=== PATIENT | male | born 1965 | race Caucasian/White ===

== ENCOUNTER 2016-05-13 15:06 | Emergency (ER) | payer OTHER, BC ==
[~2016-05-13] VITALS: Wt 129.3 kg
[~2016-05-13 15:06] MED LIST: ACYCLOVIR800 MG PO; ALTOCOR20 MG PO; ATARAX25 MG PO; BLOOD PRESSURE PILL; CHOLESTEROL PILL; CORDROL20 MG PO; HYDROCODONE BIT1 T11 PO; LISINOPRIL10 MG PO; MEDROL DOSEPAK4 MG PO; METAXALONE800 MG PO; NORFLEX100 MG PO; PREDNICOT20 MG PO; ROBAXIN750 MG PO; VICODIN ES 7501 TAB PO
[2016-05-13 15:12] VITALS: BP 156/82
[2016-05-13] MEDS ORDERED: METFORMIN750 MG PO (15:13)
[2016-05-13] MEDS ORDERED: NAPROSYN500 MG PO (15:21)
== END 2016-05-13 16:13 | disposition home or self-care (01) ==
LOC: ED 15:06
DX: S40.011A Contusion of right shoulder, initial encounter (principal); R03.0 Elevated blood-pressure reading, without diagnosis of hypertension; Z90.49 Acquired absence of other specified parts of digestive tract; W01.0XXA Fall on same level from slipping, tripping and stumbling without subsequent striking against object, initial encounter; Y93.89 Activity, other specified; Y92.69 Other specified industrial and construction area as the place of occurrence of the external cause; Y99.0 Civilian activity done for income or pay

== ENCOUNTER 2018-02-24 10:11 | Inpatient (IN) | payer BC ==
[~2018-02-24] VITALS: Ht 185.4 cm; Wt 137.6 kg
[2018-02-24] VITALS (10 sets, daily range): BP systolic 134–166; BP diastolic 78–103
--- NOTE | ~2018-02-24 | EKG ---
[place], [place] ELECTROCARDIOGRAM REPORT NAME: JUAN MADSEN UNIT #: [id number] ROOM: 504 DOCTOR: COLBY DRAFT REPORT BIRTHDATE: [birth year] [facility] Test Date: 2018-02-24 Test Time: 13:12:10 Pat Name: JUAN MADSEN Department: Room: 504 Gender: M [place]: 0012 : 1965 Requested By: DAVID ROBERTSON Order Number: [id number] Reading MD: Devante Valdez MD Measurements Intervals [place] Rate: 90 P: 37 DE: 163 QRS: -25 QRSD: 101 T: 10 QT: 364 QTc: 446 Interpretive Statements Sinus rhythm Borderline left axis deviation ST elev, probable normal early repol pattern Electronically Signed On 02-25-2018 9:26:00 PST by Devante Valdez MD CM:[email or web address]:ELECTROCARDIOGRAM REPORT [id number] DAVID BOWMAN DRAFT REPORT DAVID ROBERTSON M.D.
--- NOTE | ~2018-02-24 | EKG ---
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
--- NOTE | ~2018-02-24 | EKG ---
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
[~2018-02-24 10:11] MED LIST changes: +LISINOPRIL10 M1 PO; -LISINOPRIL10 MG PO; +METFORMIN750 MG PO; +NAPROSYN500 MG PO
[2018-02-24 10:24] LABS: BASO # 0.1 10*3/uL (0.0-0.1); BASO % 1.7 % (0.0-1.0); EOS # 0.6 10*3/uL (0.0-0.4); EOS % 7.1 % (1.0-4.0); HEMOGLOBIN 14.9 g/dl (14.0-18.0); LYMPH % 36.5 % (27.0-41.0); MEAN CELL VOLUME 90.7 fl (80.0-94.0); MEAN CORPUSCULAR HGB 31.4 pg (27.0-31.0); MEAN CORPUSCULAR HGB CONC 34.7 g/dl (33.0-37.0); MEAN PLATELET VOLUME 9.5 fl (9.6-12.3); MONO # 0.7 10*3/uL (0.1-1.0); MONO % 8.9 % (3.0-9.0); NEUT # 3.7 10*3/uL (2.3-7.9); NEUT % 45.6 % (47.0-73.0); PLATELET COUNT AUTOMATED 282 10*3/uL (130-400); RED BLOOD COUNT 4.74 10*6/uL (4.50-5.90); RED CELL DISTRI WIDTH 12.1 % (0-14.5); WHITE BLOOD COUNT 8.2 10*3/uL (4.8-10.8)
[2018-02-24 10:33] LABS: ACT PARTIAL THROMBO TIME 22.7 SECONDS (20.8-31.5)
[2018-02-24 10:42] LABS: ALKALINE PHOSPHATASE 74 U/L (45-117); BUN 11 mg/dl (7-24); CHLORIDE 101 mmol/L (98-107); CREATININE 1.14 mg/dL (0.70-1.30); POTASSIUM 3.6 mmol/L (3.5-5.1); SGOT/AST 47 IU/L (3-35); SGPT/ALT 68 U/L (12-78); SODIUM 136 mmol/L (136-145); TOTAL PROTEIN 7.9 gm/dL (6.4-8.2)
[2018-02-24 10:45] LABS: TROPONIN I < 0.015 ng/ml (<0.045)
--- NOTE | 2018-02-24 13:40 | NUR ---
A 53, admitted to 5E, under the services of LAYNE De La Fuente DO with a diagnosis of CHEST PAIN. Chief complaint is LEFT SIDED CHEST PAIN. Patient arrived via ambulatory from ER. Monitor applied. Initial assessment completed. Vital signs taken and recorded. LAYNE DE LA FUENTE DO notified of admission to the unit. Orders received. See assessment for past medical history, medications and allergies. Patient and/or family oriented to unit. [facility] visitation policy reviewed. Clothing/patient valuable form completed. KWABENA SHAH
--- NOTE | 2018-02-24 13:41 | NUR ---
NOTIFIED REGARDING CRITICAL TROPONIN LEVEL.
[2018-02-24] MEDS ORDERED: LOVASTATIN40 MG PO (14:05)
--- NOTE | 2018-02-24 14:05 | NUR ---
DR LISA RETURNED TO ROOM AND INFORMED PATIENT THAT HE HAD SPOKE WITH DR COURTNEY. PATIENT WILL NEED TO BE TRANSFERED OUT BASED ON ELEVATED TROPONIN AND ABNORMAL EKG
[2018-02-24] MEDS ORDERED: ZESTORETIC 20-1 EACH PO (14:07)
[2018-02-24] MEDS ORDERED: INDOMETHACIN25 M1 PO (14:07)
[2018-02-24] MEDS ORDERED: AVPAK METFORMI500 M1 PO (14:08)
--- NOTE | 2018-02-24 14:33 | NUR ---
SPOKE WITH DR NEWELL FROM [facility]. PER DR NEWELL, UNABLE TO REACH DR LISA AND HAD QUESTIONS REGARDING POSSIBLE ST ELEVATION. DR LISA CONTACTED AND INFORMED. DR NEWELL [phone]
--- NOTE | 2018-02-24 14:50 | NUR ---
RESTING IN BED. CHEST PAIN FREE. HEPARIN INITIATED PER ORDER
--- NOTE | 2018-02-24 16:10 | NUR ---
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 PER REGISTRATION, STILL WAITING FOR ACCEPTING PHYSICIAN. DR LISA ON FLOOR AND AWARE STILL WAITING FOR BED
--- NOTE | 2018-02-24 16:15 | NUR ---
O2 APPLIED AT 2L FOR COMFORT
--- NOTE | 2018-02-24 16:39 | NUR ---
DEMOGRAPHICS SENT TO [place]. 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 PER CARI, STILL NO ACCEPTING PHYSICIAN. DR NESBITT CONTACTED AND INFORMED OF ISSUE. DR NESBITT TO CONTACT REGISTRATION AT [place] ACCEPTING PHYSICIAN
--- NOTE | 2018-02-24 16:50 | NUR ---
DR LISA CONTACTED REGARDING CRITICAL TROPONIN 2.460. PATIENT REMAINS CHEST PAIN FREE. HR 90. BP 137/90. HEPARIN DRIP INFUSING. DR NESBITT CONTACTED AT DR LISA'S REQUEST WITH RECOMMENDATIONS FOR PATIENT TO GO TO CARDIAC FLOOR. PER DR NESBITT, PATIENT TO BE ADMITTED TO CARDIAC FLOOR. CONTINUE TO WAIT FOR BED
--- NOTE | 2018-02-24 18:30 | NUR ---
CONTINUE TO WAIT FOR AMBULANCE. [place] TO DIRECTOR OF PHOTOGRAPHY PATIENT FOR TRANSPORT TO [place]. PATIENT REMAINS CHEST PAIN FREE. HR 96 ON FORGER HELPER. 2L O2 IN USE FOR COMFORT. HEPARIN DRIP MAINTAINED
--- NOTE | 2018-02-24 19:04 | NUR ---
AMBULANCE HERE TO TRANSFER PATIENT TO [facility] PER ORDER. BELONGINGS WITH PATIENT.
--- NOTE | 2018-02-24 19:30 | NUR ---
ATTEMPTED TO CALL REPORT BUT NO ANSWER, WILL RETRY
--- NOTE | 2018-02-24 19:35 | NUR ---
REPORT CALLED TO DG ALCALA. ALL LABS AND INFO REVIEWED.
== END 2018-02-24 19:04 | disposition short-term general hospital (02) | DRG 281 ==
LOC: ED 10:11 → EDHOLD 13:06 → 5E 13:14
PROVIDERS: Emergency Medicine; ADMIT Internal Medicine
DX: I21.9 Acute myocardial infarction, unspecified (principal); Z68.41 Body mass index [BMI] 40.0-44.9, adult; I10 Essential (primary) hypertension; E11.65 Type 2 diabetes mellitus with hyperglycemia; R00.0 Tachycardia, unspecified; R74.0 Nonspecific elevation of levels of transaminase and lactic acid dehydrogenase [LDH]; E66.01 Morbid (severe) obesity due to excess calories; N20.0 Calculus of kidney; K76.0 Fatty (change of) liver, not elsewhere classified; E78.5 Hyperlipidemia, unspecified; E78.00 Pure hypercholesterolemia, unspecified; Z82.49 Family history of ischemic heart disease and other diseases of the circulatory system; I25.2 Old myocardial infarction; Z90.49 Acquired absence of other specified parts of digestive tract; Z79.899 Other long term (current) drug therapy; Z79.84 Long term (current) use of oral hypoglycemic drugs

== ENCOUNTER 2018-06-12 01:28 | Emergency (ER) | payer BC ==
[~2018-06-12] VITALS: Ht 185.4 cm; Wt 140.6 kg
[~2018-06-12 01:28] MED LIST changes: +AVPAK METFORMI500 M1 PO; +INDOMETHACIN25 M1 PO; +LOVASTATIN40 MG PO; +ZESTORETIC 20-1 EACH PO
[2018-06-12 01:32] VITALS: BP 152/85
[2018-06-12] MEDS ORDERED: ANAPROX DS550 MG PO (03:15)
== END 2018-06-12 03:38 | disposition home or self-care (01) ==
LOC: ED 01:28
DX: M23.91 Unspecified internal derangement of right knee (principal); E78.5 Hyperlipidemia, unspecified; E11.9 Type 2 diabetes mellitus without complications; I10 Essential (primary) hypertension; M10.9 Gout, unspecified; E66.9 Obesity, unspecified; Z68.42 Body mass index [BMI] 45.0-49.9, adult; Z79.899 Other long term (current) drug therapy; X58.XXXA Exposure to other specified factors, initial encounter; Y93.89 Activity, other specified; Y92.89 Other specified places as the place of occurrence of the external cause; Y99.8 Other external cause status

== ENCOUNTER → 2023-10-23 | Outpatient (CLI) | payer OTHER ==
[~2023-10-23] MED LIST changes: +ANAPROX DS550 MG PO
== END | disposition home or self-care (01) ==
LOC: LAB 08:40
PROVIDERS: ATTEND Nurse Practitioner Family
DX: E83.52 Hypercalcemia (principal)